=== PATIENT | female | born 1965 | race Caucasian/White ===

== ENCOUNTER 2021-01-05 07:58 | Inpatient (IN) ==
[2021-01-05] MEDS ORDERED: Lactated Ringers 1000 ml BAG 1,000 ML IV ONE (08:45)
[2021-01-05 08:53] LABS: ABS Lymphocytes 0.7 10^3/ul (1.0-4.8); ABS Monocytes 1.1 10^3/ul (0-0.8); ABS Neutrophils 7.7 10^3/ul (1.5-7.7); Eosinophil % 0.2 %; Hematocrit 46 % (35-47); Hemoglobin 16.4 g/dL (12.0-16.0); Lymphocyte % 7.2 %; Mean Corpuscular HGB Conc 36 g/dL (31-36); Mean Corpuscular Hemoglobin 34 pg (27-31); Mean Corpuscular Volume 96 fL (80-97); Mean Platelet Volume 7.6 fL (7.4-10.4); Platelet Count 317 10^3/uL (150-450); Red Blood Count 4.83 10^6 /uL (3.70-4.87); Red Cell Distribution Width 13 % (10-15); White Blood Count 9.5 10^3/uL (3.5-10.8)
[2021-01-05] MEDS ORDERED: HYDROmorphone 0.5 MG/0.5 ML SYRINGE IV ONE ×2 (09:05→10:02)
[2021-01-05 09:10] LABS: ALT 22 U/L (7-52); Alkaline Phosphatase 104 U/L (35-149); Blood Urea Nitrogen 27 mg/dL (6-24); Calcium 10.3 mg/dL (8.6-10.3); Chloride 68 mmol/L (101-111); Globulin 4.1 g/dL (2-4); Glucose 117 mg/dL (70-100); Sodium 126 mmol/L (135-145); Total Protein 8.1 g/dL (6.4-8.9)
[2021-01-05 09:26] LABS: Anion Gap 16 mmol/L (2-11); CO2 Carbon Dioxide 42 mmol/L (22-32)
[2021-01-05 09:30] LABS: Troponin I 0.04 ng/mL (<0.03)
[2021-01-05 09:48] LABS: Urine Appearance Cloudy; Urine Bilirubin Negative (Negative); Urine Blood 1+ (Negative); Urine Color Amber; Urine Glucose Negative (Negative); Urine Ketones 2+ (Negative); Urine Nitrite Negative (Negative); Urine Protein 3+(>=500 mg/dL) (Negative); Urine Urobilinogen Negative (Negative)
[2021-01-05 09:56] LABS: Urine Bacteria Absent (Absent); Urine Red Blood Cell 1+(3-5/hpf) (Absent); Urine Squamous Epithelial Cell Present (Absent); Urine White Blood Cell 1+(6-10/hpf) (Absent)
[2021-01-05 10:06] LABS: Potassium Redraw 2.3 mmol/L (3.5-5.0)
[2021-01-05 10:27] LABS: Magnesium 2.3 mg/dL (1.9-2.7)
[2021-01-05] MEDS: KCL 20 MEQ/100 ML IVPREMIX 20 MEQ/100 ML BAG IV SCH ×3 (11:05→15:44)
[2021-01-05] MEDS: Lactated Ringers 1000 ml BAG 1,000 ML IV SCH (11:05)
[2021-01-05] MEDS ORDERED: Lidocaine 4% GEL 10 GM TUBE TOPICAL PRN (11:37)
[2021-01-05] MEDS ORDERED: Prochlorperazine 5 mg/ml 2 ml VIAL (10 mg) IV PRN (11:45)
[2021-01-05 12:48] LABS: Rapid COVID-19 Molecular Undetected (Undetected)
[2021-01-05 13:13] LABS: Troponin I 0.03 ng/mL (<0.03)
[2021-01-05] MEDS: Nicotine PATCH 14 MG/24 HR PATCH TRANSDERM SCH (13:17)
[2021-01-05] MEDS: Magic MouthWash1-BEN/MAAL/LIDO 180 ML BTL SWISH SWAL SCH ×3 (13:18→21:04)
[2021-01-05] MEDS: Pantoprazole VIAL 40 MG VIAL IV SCH (15:43)
[2021-01-05] MEDS: HYDROmorphone 0.5 MG/0.5 ML SYRINGE IV SLOW PU PRN ×2 (17:00→21:01)
[2021-01-05] MEDS: Heparin 5000 UNITS/ML 1 mL VIAL SUBCUT SCH ×2 (17:03→21:01)
[2021-01-05 17:18] LABS: Calcium 9.4 mg/dL (8.6-10.3); Potassium 3.2 mmol/L (3.5-5.0)
[2021-01-05] MEDS: oxyCODONE 5 mg/5 ml ORAL.SOLN UDC PO PRN ×2 (17:49→23:13)
[2021-01-05 17:56] LABS: Troponin I 0.03 ng/mL (<0.03)
[2021-01-05] MEDS: KCL 10 MEQ/50 ML IVPREMIX 10 MEQ/50 ML BAG IV SCH ×4 (19:20→23:12)
[2021-01-06 00:05] LABS: Potassium 3.2 mmol/L (3.5-5.0)
[2021-01-06] MEDS: Lactated Ringers 1000 ml BAG 1,000 ML IV SCH ×4 (00:22→20:51)
[2021-01-06] MEDS: HYDROmorphone 0.5 MG/0.5 ML SYRINGE IV SLOW PU PRN ×5 (01:28→19:59)
[2021-01-06] MEDS: oxyCODONE 5 mg/5 ml ORAL.SOLN UDC PO PRN ×4 (03:19→17:10)
[2021-01-06] MEDS: Heparin 5000 UNITS/ML 1 mL VIAL SUBCUT SCH ×2 (05:51→14:39)
[2021-01-06 08:04] LABS: ABS Lymphocytes 0.8 10^3/ul (1.0-4.8); ABS Monocytes 0.9 10^3/ul (0-0.8); ABS Neutrophils 5.8 10^3/ul (1.5-7.7); Eosinophil % 0.5 %; Hematocrit 36 % (35-47); Hemoglobin 12.9 g/dL (12.0-16.0); Lymphocyte % 10.7 %; Mean Corpuscular HGB Conc 36 g/dL (31-36); Mean Corpuscular Hemoglobin 35 pg (27-31); Mean Corpuscular Volume 97 fL (80-97); Mean Platelet Volume 7.4 fL (7.4-10.4); Platelet Count 290 10^3/uL (150-450); Red Blood Count 3.69 10^6 /uL (3.70-4.87); Red Cell Distribution Width 12 % (10-15); White Blood Count 7.6 10^3/uL (3.5-10.8)
[2021-01-06 08:15] LABS: Potassium 3.3 mmol/L (3.5-5.0)
[2021-01-06] MEDS: Magic MouthWash1-BEN/MAAL/LIDO 180 ML BTL SWISH SWAL SCH ×4 (08:58→20:51)
[2021-01-06] MEDS: Nicotine PATCH 14 MG/24 HR PATCH TRANSDERM SCH (08:59)
[2021-01-06] MEDS: Pantoprazole VIAL 40 MG VIAL IV SCH (09:03)
[2021-01-06 10:28] LABS: INR 1.12 (0.86-1.15)
[2021-01-06] MEDS ORDERED: Orphenadrine Citrate INJ 30 mg/ml 2 ml VIAL (60 mg) IV PRN (14:05)
[2021-01-06] MEDS ORDERED: diPHENhydraMINE 25 mg TAB PO ONE (16:36)
[2021-01-07] MEDS: HYDROmorphone 0.5 MG/0.5 ML SYRINGE IV SLOW PU PRN ×3 (01:24→13:22)
[2021-01-07] MEDS: oxyCODONE 5 mg/5 ml ORAL.SOLN UDC PO PRN ×3 (03:53→20:34)
[2021-01-07] MEDS: Lactated Ringers 1000 ml BAG 1,000 ML IV SCH (04:21)
[2021-01-07 04:47] LABS: INR 1.11 (0.86-1.15)
[2021-01-07] MEDS: Magic MouthWash1-BEN/MAAL/LIDO 180 ML BTL SWISH SWAL SCH ×4 (07:26→20:32)
[2021-01-07] MEDS ORDERED: Clindamycin 600 MG/D5W BAG IV ONE (08:00)
[2021-01-07] MEDS ORDERED: Lidocaine 2% JELLY 6 ML TOPICAL ONE (08:08)
[2021-01-07] MEDS ORDERED: HYDROmorphone 0.5 MG/0.5 ML SYRINGE ONE (08:10)
[2021-01-07] MEDS ORDERED: fentaNYL 100 mcg/2 ml 50 MCG/ML VIAL ONE (08:17)
[2021-01-07] MEDS ORDERED: Midazolam 2 mg/2 ml VIAL 1 mg/ml 2 ml VIAL (2 mg) ONE (08:17)
[2021-01-07] MEDS ORDERED: Bupivacaine 0.25% SDV PF 10 ML VIAL INJ ONE (08:17)
[2021-01-07] MEDS: Pantoprazole VIAL 40 MG VIAL IV SCH (10:46)
[2021-01-07] MEDS: Nicotine PATCH 14 MG/24 HR PATCH TRANSDERM SCH (10:46)
[2021-01-07] MEDS ORDERED: Lorazepam PYXIS KEY PRN (11:58)
[2021-01-07] MEDS ORDERED: LORazepam 2 mg VIAL 1 ml IV PUSH PRN (11:58)
[2021-01-07] MEDS ORDERED: Lactated Ringers 1000 ml BAG 1,000 ML IV SCH (12:14)
[2021-01-07] MEDS: KCL 10 MEQ/50 ML IVPREMIX 10 MEQ/50 ML BAG IV SCH ×2 (13:13→16:31)
[2021-01-07] MEDS: Heparin 5000 UNITS/ML 1 mL VIAL SUBCUT SCH ×2 (13:13→20:34)
[2021-01-07] MEDS ORDERED: DiMENhydriNATE IV 50 mg/ml 1 ml VIAL IV PUSH PRN (13:14)
[2021-01-07] MEDS: HYDROmorphone 1 MG/1 ML SYRINGE IV SLOW PU PRN (17:25)
[2021-01-08] MEDS: HYDROmorphone 1 MG/1 ML SYRINGE IV SLOW PU PRN ×3 (01:22→15:21)
[2021-01-08] MEDS: oxyCODONE 5 mg/5 ml ORAL.SOLN UDC PO PRN (05:06)
[2021-01-08] MEDS: Heparin 5000 UNITS/ML 1 mL VIAL SUBCUT SCH (05:07)
[2021-01-08 08:28] LABS: Calcium 9.7 mg/dL (8.6-10.3); Magnesium 1.5 mg/dL (1.9-2.7); Potassium 3.1 mmol/L (3.5-5.0)
[2021-01-08] MEDS: Pantoprazole VIAL 40 MG VIAL IV SCH (09:02)
[2021-01-08] MEDS: Magic MouthWash1-BEN/MAAL/LIDO 180 ML BTL SWISH SWAL SCH ×2 (09:03→13:45)
[2021-01-08] MEDS: Nicotine PATCH 14 MG/24 HR PATCH TRANSDERM SCH (09:03)
[2021-01-08] MEDS ORDERED: Magnesium Sulfate IV 3 GM in NS 0.9% 100 ml BAG 100 ML IVPB ONE (09:32)
[2021-01-08] MEDS ORDERED: DiMENhydriNATE IV 50 mg/ml 1 ml VIAL IV PUSH PRN (09:33)
[2021-01-08] MEDS ORDERED: oxyCODONE 5 mg/5 ml ORAL.SOLN UDC G TUBE PRN (09:58)
[2021-01-08] MEDS ORDERED: NS 0.9% w/ 40 Meq KCL 1000 ML 1,000 ML IV SCH (10:00)
[2021-01-08] MEDS ORDERED: KCL 10 MEQ/50 ML IVPREMIX 10 MEQ/50 ML BAG IV SCH (10:00)
[2021-01-08 11:54] VITALS: BP 147/86
== END 2021-01-08 15:30 | disposition home or self-care (01) | DRG 243 ==
LOC: ED 07:58 → SUATTDRO 11:14 → EDHOLD 11:14 → MEDTELE 15:51
PROVIDERS: ADMIT Internal Medicine; ATTEND Internal Medicine

== ENCOUNTER 2021-07-20 17:24 | Inpatient (IN) ==
[2021-07-20] MEDS ORDERED: Lactated Ringers 1000 ml BAG 1,000 ML IV ONE (19:37)
[2021-07-20] MEDS ORDERED: LORazepam 2 mg VIAL 1 ml IV PUSH ONE ×2 (19:38→22:11)
[2021-07-20] MEDS ORDERED: Lorazepam PYXIS KEY PRN ×2 (19:38→22:11)
[2021-07-20] MEDS ORDERED: ACETAMINOPHEN 1 GM/100 ML IV SCH (19:45)
[2021-07-20 19:55] LABS: Hematocrit 28 % (35-47); Hemoglobin 9.8 g/dL (12.0-16.0); Mean Corpuscular HGB Conc 35 g/dL (31-36); Mean Corpuscular Hemoglobin 36 pg (27-31); Mean Corpuscular Volume 102 fL (80-97); Mean Platelet Volume 7.4 fL (7.4-10.4); Platelet Count 335 10^3/uL (150-450); Red Blood Count 2.75 10^6 /uL (3.70-4.87); Red Cell Distribution Width 16 % (10-15); White Blood Count 6.1 10^3/uL (3.5-10.8)
[2021-07-20 20:20] LABS: Activated Partial Thrombo Time 26.7 seconds (26.0-38.0); INR 1.04 (0.86-1.15)
[2021-07-20 20:51] LABS: Albumin 2.6 g/dL (3.2-5.2); Albumin/Globulin Ratio 1.2 (1-3); C Reactive Protein 54.37 mg/L (<8.01); Globulin 2.2 g/dL (2-4); Potassium 3.6 mmol/L (3.5-5.0); Total Bilirubin 0.4 mg/dL (0.2-1.0); Total Protein 4.8 g/dL (6.4-8.9); eGFR CKD-EPI 107.1 (>60)
[2021-07-20] MEDS ORDERED: Iohexol 350 (CONTRAST) 500 ML MDV IV ONE (20:56)
[2021-07-20] MEDS ORDERED: Azithromycin 500 mg/250 ml NS 500 MG/250 ML BAG IVPB ONE (21:32)
[2021-07-20] MEDS ORDERED: cefTRIAXone 1 gm/50 mL D5W 1 GM/50 ML BAG IV ONE (21:32)
[2021-07-20 21:45] LABS: Anisocytosis 1+; Basophilic Stippling 1+; Macrocytosis 1+; Polychromasia 1+
[2021-07-20 21:46] LABS: Toxic Granulation 1+
[2021-07-20 21:47] LABS: ABS Lymphocytes 0.2 10^3/ul (1.0-4.8); ABS Monocytes 1.7 10^3/ul (0-0.8); ABS Neutrophils 4.1 10^3/ul (1.5-7.7); Lymphocyte % 3.9 %; Nucleated Red Blood Cells % 0.3
[2021-07-20] MEDS ORDERED: Ondansetron 4 mg VIAL 2 MG/ML 2 ml VIAL IV PRN (22:11)
[2021-07-20 22:40] LABS: High Sensitivity Troponin 1 Hr 7 pg/mL (<15)
[2021-07-21] MEDS: fentaNYL PATCH 50 MCG/HR 1 PATCH TRANSDERM SCH (02:01)
[2021-07-21] MEDS: Sulfamethox/Trimethoprim DS TAB 800/160 mg PO SCH ×4 (02:04→20:42)
[2021-07-21] MEDS: Heparin 5000 UNITS/ML 1 mL VIAL SUBCUT SCH ×4 (02:04→20:42)
[2021-07-21 02:13] LABS: Calcium 7.8 mg/dL (8.6-10.3); Potassium 3.3 mmol/L (3.5-5.0); eGFR CKD-EPI 108.1 (>60)
[2021-07-21] MEDS: oxyCODONE 5 mg/5 ml ORAL.SOLN UDC PO PRN ×3 (02:21→20:41)
[2021-07-21 02:24] LABS: Osmolality Serum 264 mOsm/kg (275-295)
[2021-07-21] MEDS ORDERED: Potassium Chloride LIQUID 20 MEQ/15 ML LIQUID PO ONE (02:43)
[2021-07-21 03:43] LABS: Urine Appearance Clear; Urine Bilirubin Negative (Negative); Urine Blood Negative (Negative); Urine Color Straw; Urine Glucose Negative (Negative); Urine Ketones Negative (Negative); Urine Nitrite Negative (Negative); Urine Protein Negative (Negative); Urine Specific Gravity 1.013 (1.002-1.030); Urine Urobilinogen Negative (Negative)
[2021-07-21 04:00] LABS: Urine Creatinine Concentration 15.16 mg/dL
[2021-07-21 04:26] LABS: Urine Osmo 253 mOsm/kg (150-1150)
[2021-07-21 06:18] LABS: ABS Lymphocytes 0.2 10^3/ul (1.0-4.8); ABS Monocytes 0.2 10^3/ul (0-0.8); ABS Neutrophils 3.9 10^3/ul (1.5-7.7); Hematocrit 30 % (35-47); Hemoglobin 10.3 g/dL (12.0-16.0); Lymphocyte % 4.9 %; Mean Corpuscular HGB Conc 34 g/dL (31-36); Mean Corpuscular Hemoglobin 35 pg (27-31); Mean Corpuscular Volume 103 fL (80-97); Mean Platelet Volume 7.7 fL (7.4-10.4); Nucleated Red Blood Cells % 0.2; Platelet Count 357 10^3/uL (150-450); Red Blood Count 2.91 10^6 /uL (3.70-4.87); Red Cell Distribution Width 16 % (10-15); White Blood Count 4.4 10^3/uL (3.5-10.8)
[2021-07-21 06:42] LABS: ALT 7 U/L (7-52); Albumin 2.5 g/dL (3.2-5.2); Albumin/Globulin Ratio 1.2 (1-3); Alkaline Phosphatase 104 U/L (35-149); Blood Urea Nitrogen 6 mg/dL (6-24); C Reactive Protein 72.67 mg/L (<8.01); CO2 Carbon Dioxide 27 mmol/L (22-32); Calcium 7.4 mg/dL (8.6-10.3); Chloride 91 mmol/L (101-111); Globulin 2.1 g/dL (2-4); Glucose 110 mg/dL (70-100); Magnesium 1.5 mg/dL (1.9-2.7); Sodium 126 mmol/L (135-145); Total Protein 4.6 g/dL (6.4-8.9); eGFR CKD-EPI 113.3 (>60)
[2021-07-21 06:47] LABS: Anion Gap 8 mmol/L (2-11)
[2021-07-21] MEDS ORDERED: Magnesium Sulfate IV 3 GM in NS 0.9% 100 ml BAG 100 ML IVPB ONE (06:56)
[2021-07-21] MEDS ORDERED: Magnesium Sulfate 2 GM IV (Premix) IVPB ONE (07:00)
[2021-07-21] MEDS ORDERED: Magnesium Sulfate 1 GM IV 1 GM/100 ML BAG IV ONE (08:00)
[2021-07-21] MEDS: fentaNYL Patch Check Q Shift NOTE FOLLOW UP SCH ×2 (08:28→18:35)
[2021-07-21 09:18] LABS: Potassium Redraw 3.5 mmol/L (3.5-5.0)
[2021-07-21] MEDS ORDERED: methylPREDNISolone SOD SUCC 125 mg 2 ML VIAL IV ONE (10:00)
[2021-07-21] MEDS: Sucralfate 1 gm SUSP 1 GM/10 ML UDC PO SCH ×2 (11:01→20:45)
[2021-07-21] MEDS: methylPREDNISolone SOD SUCC 40 mg/ml 1 ml VIAL IV SCH (17:54)
[2021-07-21] MEDS ORDERED: Nicotine GUM 2MG FRUIT FLAVOR PO ONE (18:02)
[2021-07-21] MEDS: cefTRIAXone 1 gm/50 mL D5W 1 GM/50 ML BAG IV SCH (21:09)
[2021-07-21 22:57] LABS: Phosphorus 4.6 mg/dL (2.5-5.0)
[2021-07-22] MEDS: methylPREDNISolone SOD SUCC 40 mg/ml 1 ml VIAL IV SCH ×3 (01:52→19:16)
[2021-07-22] MEDS: oxyCODONE 5 mg/5 ml ORAL.SOLN UDC PO PRN ×3 (02:37→17:06)
[2021-07-22 04:36] LABS: ABS Lymphocytes 0.2 10^3/ul (1.0-4.8); ABS Monocytes 0.9 10^3/ul (0-0.8); ABS Neutrophils 6.7 10^3/ul (1.5-7.7); Hematocrit 26 % (35-47); Lymphocyte % 2.1 %; Mean Corpuscular HGB Conc 35 g/dL (31-36); Mean Corpuscular Hemoglobin 35 pg (27-31); Mean Corpuscular Volume 102 fL (80-97); Mean Platelet Volume 7.7 fL (7.4-10.4); Nucleated Red Blood Cells % 0.2; Platelet Count 331 10^3/uL (150-450); Red Blood Count 2.56 10^6 /uL (3.70-4.87); Red Cell Distribution Width 16 % (10-15); White Blood Count 7.7 10^3/uL (3.5-10.8)
[2021-07-22 04:54] LABS: Calcium 8.1 mg/dL (8.6-10.3); Magnesium 2.3 mg/dL (1.9-2.7); Phosphorus 5.3 mg/dL (2.5-5.0); Potassium 3.5 mmol/L (3.5-5.0); eGFR CKD-EPI 101.2 (>60)
[2021-07-22] MEDS ORDERED: Potassium Chloride LIQUID 20 MEQ/15 ML LIQUID PO ONE (05:27)
[2021-07-22] MEDS: Heparin 5000 UNITS/ML 1 mL VIAL SUBCUT SCH ×3 (05:56→22:54)
[2021-07-22] MEDS: fentaNYL Patch Check Q Shift NOTE FOLLOW UP SCH ×2 (06:58→19:12)
[2021-07-22] MEDS: Nicotine PATCH 21 MG/24 HR PATCH ONE ×2 (09:12→11:08)
[2021-07-22] MEDS: Nicotine PATCH 21 MG/24 HR PATCH TRANSDERM SCH (09:13)
[2021-07-22] MEDS: Sulfamethox/Trimethoprim DS TAB 800/160 mg PO SCH (09:13)
[2021-07-22] MEDS: Sucralfate 1 gm SUSP 1 GM/10 ML UDC PO SCH ×2 (11:37→22:54)
[2021-07-22] MEDS: Sulfamethox/Trimethoprim SUSP 800-160mg/20 ML UDC G TUBE SCH ×2 (13:03→22:44)
[2021-07-22] MEDS: oxyCODONE 5 mg/5 ml ORAL.SOLN UDC G TUBE PRN (21:17)
[2021-07-22] MEDS: cefTRIAXone 1 gm/50 mL D5W 1 GM/50 ML BAG IV SCH (22:44)
[2021-07-22] MEDS: guaiFENesin 100 mg/5 ml LIQ unit dose cup G TUBE SCH (22:55)
[2021-07-22] MEDS: Lansoprazole SUSP ORALSYR 3 MG/ML G TUBE SCH (23:15)
[2021-07-23] MEDS: guaiFENesin 100 mg/5 ml LIQ unit dose cup G TUBE SCH ×6 (02:04→22:22)
[2021-07-23] MEDS: methylPREDNISolone SOD SUCC 40 mg/ml 1 ml VIAL IV SCH ×3 (02:04→17:38)
[2021-07-23] MEDS: oxyCODONE 5 mg/5 ml ORAL.SOLN UDC G TUBE PRN ×5 (02:04→22:21)
[2021-07-23 03:17] LABS: ABS Lymphocytes 0.2 10^3/ul (1.0-4.8); ABS Monocytes 0.9 10^3/ul (0-0.8); ABS Neutrophils 5.6 10^3/ul (1.5-7.7); Hematocrit 26 % (35-47); Hemoglobin 8.8 g/dL (12.0-16.0); Lymphocyte % 2.4 %; Mean Corpuscular HGB Conc 33 g/dL (31-36); Mean Corpuscular Hemoglobin 34 pg (27-31); Mean Corpuscular Volume 103 fL (80-97); Mean Platelet Volume 7.5 fL (7.4-10.4); Platelet Count 309 10^3/uL (150-450); Red Blood Count 2.55 10^6 /uL (3.70-4.87); Red Cell Distribution Width 16 % (10-15); White Blood Count 6.7 10^3/uL (3.5-10.8)
[2021-07-23 03:47] LABS: Albumin 2.4 g/dL (3.2-5.2); Albumin/Globulin Ratio 1.1 (1-3); Calcium 7.9 mg/dL (8.6-10.3); Globulin 2.1 g/dL (2-4); Potassium 4.4 mmol/L (3.5-5.0); Total Bilirubin 0.2 mg/dL (0.2-1.0); Total Protein 4.5 g/dL (6.4-8.9); eGFR CKD-EPI 100.9 (>60)
[2021-07-23] MEDS: Heparin 5000 UNITS/ML 1 mL VIAL SUBCUT SCH ×3 (06:34→22:16)
[2021-07-23] MEDS: fentaNYL Patch Check Q Shift NOTE FOLLOW UP SCH ×2 (07:26→18:51)
[2021-07-23] MEDS: Nicotine PATCH 21 MG/24 HR PATCH TRANSDERM SCH (08:04)
[2021-07-23] MEDS: Sulfamethox/Trimethoprim SUSP 800-160mg/20 ML UDC G TUBE SCH ×3 (08:12→20:09)
[2021-07-23] MEDS: Sucralfate 1 gm SUSP 1 GM/10 ML UDC PO SCH ×2 (08:12→20:09)
[2021-07-23] MEDS: Lansoprazole SUSP ORALSYR 3 MG/ML G TUBE SCH ×2 (08:13→20:14)
[2021-07-23 15:05] LABS: Body Fluid Appearance Cloudy; Body Fluid Color Yellow; Body Fluid Source Pleural Fluid
[2021-07-23 16:42] LABS: Body Fluid WBC 159 /mcL
[2021-07-23 17:53] LABS: Body Fluid Mono 16 %; Body Fluid Other Cells 176; Body Fluid Total Cells Counted 200
[2021-07-23] MEDS: cefTRIAXone 1 gm/50 mL D5W 1 GM/50 ML BAG IV SCH (20:03)
[2021-07-23] MEDS: Diphenoxylat/Atrop 2.5-0.025mg TAB FEED TUBE PRN (22:20)
[2021-07-23] MEDS: fentaNYL PATCH 50 MCG/HR 1 PATCH TRANSDERM SCH (22:53)
[2021-07-24] MEDS: methylPREDNISolone SOD SUCC 40 mg/ml 1 ml VIAL IV SCH ×3 (02:38→17:05)
[2021-07-24] MEDS: guaiFENesin 100 mg/5 ml LIQ unit dose cup G TUBE SCH ×6 (02:41→22:19)
[2021-07-24] MEDS: oxyCODONE 5 mg/5 ml ORAL.SOLN UDC G TUBE PRN ×5 (02:45→22:39)
[2021-07-24] MEDS: Heparin 5000 UNITS/ML 1 mL VIAL SUBCUT SCH ×3 (05:19→22:51)
[2021-07-24 06:20] LABS: ABS Lymphocytes 0.1 10^3/ul (1.0-4.8); ABS Monocytes 0.7 10^3/ul (0-0.8); ABS Neutrophils 8.2 10^3/ul (1.5-7.7); Hematocrit 27 % (35-47); Lymphocyte % 1.5 %; Mean Corpuscular HGB Conc 33 g/dL (31-36); Mean Corpuscular Hemoglobin 34 pg (27-31); Mean Corpuscular Volume 102 fL (80-97); Mean Platelet Volume 7.5 fL (7.4-10.4); Platelet Count 301 10^3/uL (150-450); Red Blood Count 2.66 10^6 /uL (3.70-4.87); Red Cell Distribution Width 16 % (10-15)
[2021-07-24 06:58] LABS: Albumin 2.4 g/dL (3.2-5.2); Albumin/Globulin Ratio 1.1 (1-3); Globulin 2.1 g/dL (2-4); Magnesium 1.8 mg/dL (1.9-2.7); Phosphorus 3.2 mg/dL (2.5-5.0); Potassium 4.3 mmol/L (3.5-5.0); Total Bilirubin 0.2 mg/dL (0.2-1.0); Total Protein 4.5 g/dL (6.4-8.9); eGFR CKD-EPI 100.2 (>60)
[2021-07-24] MEDS: fentaNYL Patch Check Q Shift NOTE FOLLOW UP SCH ×2 (06:59→19:08)
[2021-07-24] MEDS: Sucralfate 1 gm SUSP 1 GM/10 ML UDC PO SCH ×2 (08:24→22:20)
[2021-07-24] MEDS: Sulfamethox/Trimethoprim SUSP 800-160mg/20 ML UDC G TUBE SCH ×3 (08:24→22:19)
[2021-07-24] MEDS: Nicotine PATCH 21 MG/24 HR PATCH TRANSDERM SCH (08:25)
[2021-07-24] MEDS: Lansoprazole SUSP ORALSYR 3 MG/ML G TUBE SCH ×2 (08:40→22:41)
[2021-07-24 13:39] LABS: Lactate Dehydrogenase, BF 196 U/L
[2021-07-24 15:47] LABS: Fluid Type, Protein, Total PLEURAL FLUID; Total Protein, BF 2.2 g/dL
[2021-07-24] MEDS: cefTRIAXone 1 gm/50 mL D5W 1 GM/50 ML BAG IV SCH (20:03)
[2021-07-24] MEDS: Diphenoxylat/Atrop 2.5-0.025mg TAB FEED TUBE PRN (22:59)
[2021-07-25] MEDS: methylPREDNISolone SOD SUCC 40 mg/ml 1 ml VIAL IV SCH ×2 (01:52→11:31)
[2021-07-25] MEDS: guaiFENesin 100 mg/5 ml LIQ unit dose cup G TUBE SCH ×4 (01:54→13:36)
[2021-07-25] MEDS: oxyCODONE 5 mg/5 ml ORAL.SOLN UDC G TUBE PRN ×2 (06:19→13:36)
[2021-07-25] MEDS: Heparin 5000 UNITS/ML 1 mL VIAL SUBCUT SCH ×2 (06:22→13:44)
[2021-07-25] MEDS: fentaNYL Patch Check Q Shift NOTE FOLLOW UP SCH (07:15)
[2021-07-25] MEDS: Nicotine PATCH 21 MG/24 HR PATCH TRANSDERM SCH (09:28)
[2021-07-25] MEDS: Lansoprazole SUSP ORALSYR 3 MG/ML G TUBE SCH (09:40)
[2021-07-25] MEDS: Sucralfate 1 gm SUSP 1 GM/10 ML UDC PO SCH (09:40)
[2021-07-25] MEDS: Sulfamethox/Trimethoprim SUSP 800-160mg/20 ML UDC G TUBE SCH ×2 (09:41→13:49)
[2021-07-25 15:29] VITALS: BP 128/85
== END 2021-07-25 16:35 | disposition home or self-care (01) | DRG 424 ==
LOC: ED 17:24 → EDHOLD 22:11 → SUATTDRO 22:11 → ICU 07-21 11:48 → MED 07-22 14:52
PROVIDERS: ADMIT Internal Medicine Critical Care Medicine; ATTEND Internal Medicine

== ENCOUNTER 2021-12-04 07:26 | Inpatient (IN) ==
[2021-12-04] MEDS ORDERED: Lactated Ringers 1000 ml BAG 1,000 ML IV ONE ×2 (07:46→09:03)
[2021-12-04] MEDS ORDERED: oxyCODONE 5 mg/5 ml ORAL.SOLN UDC G TUBE ONE ×2 (07:55→08:30)
[2021-12-04] MEDS ORDERED: Lorazepam PYXIS KEY PRN (08:13)
[2021-12-04] MEDS ORDERED: LORazepam 2 mg VIAL 1 ml IV PUSH ONE (08:13)
[2021-12-04] MEDS ORDERED: oxyCODONE *Concentrate* ORALSYR 20 MG/ML G TUBE ONE (08:14)
[2021-12-04] MEDS: Albuterol HFA INHALER 8 gm MDI INH ONE ×2 (08:23→08:27)
[2021-12-04 08:28] LABS: Hematocrit 24 % (35-47); Hemoglobin 7.5 g/dL (12.0-16.0); Mean Corpuscular HGB Conc 32 g/dL (31-36); Mean Corpuscular Hemoglobin 35 pg (27-31); Mean Corpuscular Volume 111 fL (80-97); Mean Platelet Volume 9.3 fL (7.4-10.4); Platelet Count 174 10^3/uL (150-450); Red Blood Count 2.14 10^6 /uL (3.70-4.87); Red Cell Distribution Width 19 % (10-15); White Blood Count 10.7 10^3/uL (3.5-10.8)
[2021-12-04 08:31] LABS: Activated Partial Thrombo Time 30.9 seconds (26.0-38.0); INR 0.87 (0.89-1.11)
[2021-12-04] MEDS ORDERED: Cefepime 1 GM in Dextrose 1 GM/50 ML BAG IV ONE (08:46)
[2021-12-04 08:51] LABS: C Reactive Protein 52.14 mg/L (<8.01)
[2021-12-04] MEDS ORDERED: Vancomycin 1,250 MG in NS 0.9% 250 ml 250 ML IVPB ONE (09:00)
[2021-12-04 09:19] LABS: ABS Lymphocytes 0.4 10^3/ul (1.0-4.8); ABS Monocytes 0.6 10^3/ul (0-0.8); ABS Neutrophils 9.7 10^3/ul (1.5-7.7); Anisocytosis 1+; Eosinophil % 0.1 %; Lymphocyte % 3.3 %; Macrocytosis 2+
[2021-12-04 10:26] LABS: Albumin 1.8 g/dL (3.2-5.2); Potassium 4.5 mmol/L (3.5-5.0); Total Bilirubin 0.9 mg/dL (0.2-1.0)
[2021-12-04 10:32] LABS: Albumin/Globulin Ratio 0.8 (1-3); Globulin 2.2 g/dL (2-4); eGFR CKD-EPI 12.2 (>60)
[2021-12-04 10:35] LABS: Calcium 6.4 mg/dL (8.6-10.3)
[2021-12-04 11:11] LABS: PCO2 Arterial 39 mmHg (35-45); PO2 Arterial 90 mmHg (80-100)
[2021-12-04 11:26] LABS: Urine Appearance Clear; Urine Bilirubin Negative (Negative); Urine Blood Negative (Negative); Urine Color Yellow; Urine Glucose Negative (Negative); Urine Ketones Negative (Negative); Urine Nitrite Negative (Negative); Urine Protein 1+(30 mg/dL) (Negative); Urine Specific Gravity 1.018 (1.002-1.030); Urine Urobilinogen Negative (Negative)
[2021-12-04 11:31] LABS: Urine Bacteria Absent (Absent); Urine Red Blood Cell 1+(3-5/hpf) (Absent); Urine Squamous Epithelial Cell Present (Absent); Urine White Blood Cell Trace(0-5/hpf) (Absent)
[2021-12-04] MEDS ORDERED: Ondansetron 4 mg VIAL 2 MG/ML 2 ml VIAL IV PRN (11:40)
[2021-12-04] MEDS ORDERED: Polyethylene Glycol 3350 17 GM PACKET PO PRN (11:46)
[2021-12-04] MEDS ORDERED: Magnesium Hydroxide LIQ 30 ML UDC PO PRN (11:46)
[2021-12-04] MEDS ORDERED: Sucralfate 1 gm SUSP 1 GM/10 ML UDC PO PRN (11:46)
[2021-12-04] MEDS ORDERED: Docusate LIQ 100 MG/10 ML UDC PO PRN (11:46)
[2021-12-04] MEDS ORDERED: fentaNYL PATCH 25 MCG/HR 1 PATCH TRANSDERM SCH (12:00)
[2021-12-04] MEDS ORDERED: Albumin Human 25% 25 GM/100 ML BTL IV ONE (12:06)
[2021-12-04 12:31] LABS: Anion Gap 16 mmol/L (2-11); Blood Urea Nitrogen 77 mg/dL (6-24); CO2 Carbon Dioxide 19 mmol/L (22-32); Chloride 87 mmol/L (101-111); Glucose 101 mg/dL (70-100); Potassium 4.4 mmol/L (3.5-5.0); Sodium 122 mmol/L (135-145); eGFR CKD-EPI 13.2 (>60)
[2021-12-04 12:44] LABS: Calcium 6.2 mg/dL (8.6-10.3)
[2021-12-04] MEDS ORDERED: Bumetanide IV 0.25 MG/ML 4 ml VIAL (1 mg) SLOW PUSH ONE (13:12)
[2021-12-04] MEDS ORDERED: Albumin Human 25% 12.5 GM/50 ML BTL IV ONE (13:12)
[2021-12-04] MEDS: Diphenoxylat/Atrop 2.5-0.025mg TAB PO SCH ×3 (13:59→19:56)
[2021-12-04] MEDS: Azithromycin IV 500 MG in NS 0.9% 250 ml 250 ML IVPB SCH (14:45)
[2021-12-04 15:01] LABS: % Iron Saturation 77 % (15-55); Iron 81 ug/dL (50-212); Total Iron Binding Capacity 105 mcg/dL (250-450); Transferrin < 75 mg/dL (203-362); Unsaturated Iron Binding 24 ug/dL
[2021-12-04 15:07] LABS: TSH Ultra Thyroid Stim Horm 3.25 mcIU/mL (0.34-5.60)
[2021-12-04 15:13] LABS: Ferritin 1149.5 ng/mL (11-307)
[2021-12-04 15:16] LABS: Vitamin B12 > 1450 pg/mL (180-914)
[2021-12-04 16:10] LABS: GGTP 2257 U/L (9-64.0)
[2021-12-04 16:30] LABS: Hematocrit 18 % (35-47); Hemoglobin 5.7 g/dL (12.0-16.0)
[2021-12-04 16:33] LABS: Potassium 4.4 mmol/L (3.5-5.0); eGFR CKD-EPI 13.2 (>60)
[2021-12-04 16:37] LABS: Calcium 6.3 mg/dL (8.6-10.3)
[2021-12-04 17:23] LABS: Hematocrit 18 % (35-47)
[2021-12-04] MEDS: Albumin Human 25% 25 GM/100 ML BTL IV SCH (19:51)
[2021-12-04] MEDS: Bumetanide IV 0.25 MG/ML 4 ml VIAL (1 mg) SLOW PUSH SCH (19:51)
[2021-12-04] MEDS ORDERED: Albumin Human 25% 25 GM/100 ML BTL IV SCH (20:00)
[2021-12-04] MEDS: fentaNYL Patch Check Q Shift NOTE FOLLOW UP SCH (20:04)
[2021-12-04] MEDS: Lansoprazole SUSP ORALSYR 3 MG/ML PO SCH (21:23)
[2021-12-04] MEDS: cefTRIAXone 1 gm/50 mL D5W 1 GM/50 ML BAG IV SCH (21:46)
[2021-12-05] MEDS: Albumin Human 25% 25 GM/100 ML BTL IV SCH ×3 (00:48→14:04)
[2021-12-05] MEDS: Bumetanide IV 0.25 MG/ML 4 ml VIAL (1 mg) SLOW PUSH SCH ×4 (00:51→19:43)
[2021-12-05 01:05] LABS: ABS Lymphocytes 0.2 10^3/ul (1.0-4.8); ABS Monocytes 0.4 10^3/ul (0-0.8); ABS Neutrophils 8.9 10^3/ul (1.5-7.7); Eosinophil % 0.1 %; Hematocrit 22 % (35-47); Hemoglobin 7.4 g/dL (12.0-16.0); Lymphocyte % 2.1 %; Mean Corpuscular HGB Conc 33 g/dL (31-36); Mean Corpuscular Hemoglobin 34 pg (27-31); Mean Corpuscular Volume 102 fL (80-97); Mean Platelet Volume 9.6 fL (7.4-10.4); Platelet Count 115 10^3/uL (150-450); Red Blood Count 2.21 10^6 /uL (3.70-4.87); Red Cell Distribution Width 24 % (10-15); White Blood Count 9.5 10^3/uL (3.5-10.8)
[2021-12-05] MEDS: oxyCODONE 5 mg/5 ml ORAL.SOLN UDC PO PRN ×2 (03:44→09:41)
[2021-12-05 05:49] LABS: Calcium 6.8 mg/dL (8.6-10.3); Potassium 4.3 mmol/L (3.5-5.0); eGFR CKD-EPI 12.2 (>60)
[2021-12-05] MEDS: fentaNYL Patch Check Q Shift NOTE FOLLOW UP SCH ×2 (07:05→18:56)
[2021-12-05 08:16] LABS: Phosphorus 7.5 mg/dL (2.5-5.0)
[2021-12-05] MEDS ORDERED: Bumetanide IV 0.25 MG/ML 4 ml VIAL (1 mg) SLOW PUSH SCH (09:00)
[2021-12-05 09:27] LABS: Albumin 3.3 g/dL (3.2-5.2); Albumin/Globulin Ratio 2.2 (1-3); Globulin 1.5 g/dL (2-4); Indirect Bilirubin 0.6 mg/dL (0.3-1.0); Total Bilirubin 1.6 mg/dL (0.2-1.0); Total Protein 4.8 g/dL (6.4-8.9)
[2021-12-05] MEDS: Lansoprazole SUSP ORALSYR 3 MG/ML PO SCH (09:42)
[2021-12-05] MEDS: Diphenoxylat/Atrop 2.5-0.025mg TAB PO SCH ×2 (09:42→12:33)
[2021-12-05] MEDS ORDERED: Atropine 1% (ORAL/SL) 15 ML BTL SL PRN (12:05)
[2021-12-05] MEDS ORDERED: HYDROmorphone 0.5 MG/0.5 ML SYRINGE IV SLOW PU PRN (12:09)
[2021-12-05] MEDS: fentaNYL PATCH 50 MCG/HR 1 PATCH TRANSDERM SCH (16:15)
[2021-12-05] MEDS: Scopolamine 1 mg/72hr PATCH TRANSDERM SCH (16:22)
[2021-12-05] MEDS: HYDROmorphone 0.5 MG/0.5 ML SYRINGE IV SLOW PU PRN ×2 (19:09→21:18)
[2021-12-05] MEDS: Azithromycin IV 500 MG in NS 0.9% 250 ml 250 ML IVPB SCH (19:43)
[2021-12-05] MEDS: LORazepam 2 mg VIAL 1 ml IV PUSH PRN (20:36)
[2021-12-05] MEDS: cefTRIAXone 1 gm/50 mL D5W 1 GM/50 ML BAG IV SCH (21:17)
[2021-12-06] MEDS: HYDROmorphone 0.5 MG/0.5 ML SYRINGE IV SLOW PU PRN ×8 (00:33→21:58)
[2021-12-06] MEDS: Bumetanide IV 0.25 MG/ML 4 ml VIAL (1 mg) SLOW PUSH SCH ×3 (03:24→19:23)
[2021-12-06] MEDS: LORazepam 2 mg VIAL 1 ml IV PUSH PRN ×2 (04:06→22:50)
[2021-12-06] MEDS: fentaNYL Patch Check Q Shift NOTE FOLLOW UP SCH ×2 (07:34→19:29)
[2021-12-06] MEDS ORDERED: cefTRIAXone 1 gm/50 mL D5W 1 GM/50 ML BAG IV SCH (16:00)
[2021-12-07] MEDS: Bumetanide IV 0.25 MG/ML 4 ml VIAL (1 mg) SLOW PUSH SCH ×4 (03:22→20:34)
[2021-12-07] MEDS: HYDROmorphone 0.5 MG/0.5 ML SYRINGE IV SLOW PU PRN ×6 (03:23→15:55)
[2021-12-07] MEDS: fentaNYL Patch Check Q Shift NOTE FOLLOW UP SCH ×2 (07:08→19:17)
[2021-12-07] MEDS: LORazepam 2 mg VIAL 1 ml IV PUSH PRN ×2 (14:27→16:35)
[2021-12-07] MEDS ORDERED: HYDROmorphone 0.5 MG/0.5 ML SYRINGE IV SLOW PU PRN (15:57)
[2021-12-07] MEDS ORDERED: Glycopyrrolate IV 0.2 MG/ML 20 ML VIAL IV SLOW PU SCH (16:00)
[2021-12-07] MEDS ORDERED: Lorazepam PYXIS KEY PRN (16:22)
[2021-12-07] MEDS: Glycopyrrolate IV 0.2 MG/ML 1 ML VIAL IV SLOW PU SCH ×2 (16:36→22:28)
[2021-12-07] MEDS: HYDROmorphone 1 MG/1 ML SYRINGE IV SLOW PU SCH ×2 (17:59→21:18)
[2021-12-07] MEDS: LORazepam 2 mg VIAL 1 ml IV PUSH SCH ×2 (19:52→23:45)
[2021-12-08] MEDS: HYDROmorphone 1 MG/1 ML SYRINGE IV SLOW PU SCH ×6 (01:18→20:50)
[2021-12-08] MEDS: LORazepam 2 mg VIAL 1 ml IV PUSH SCH ×5 (03:33→20:45)
[2021-12-08] MEDS: Glycopyrrolate IV 0.2 MG/ML 1 ML VIAL IV SLOW PU SCH ×4 (05:15→20:53)
[2021-12-08] MEDS: Bumetanide IV 0.25 MG/ML 4 ml VIAL (1 mg) SLOW PUSH SCH ×3 (05:15→20:55)
[2021-12-08] MEDS: fentaNYL Patch Check Q Shift NOTE FOLLOW UP SCH ×2 (07:06→21:01)
[2021-12-08] MEDS: fentaNYL PATCH 50 MCG/HR 1 PATCH TRANSDERM SCH (16:20)
[2021-12-08] MEDS: Scopolamine 1 mg/72hr PATCH TRANSDERM SCH (17:01)
[2021-12-08 18:09] VITALS: BP 88/40
[2021-12-09] MEDS: LORazepam 2 mg VIAL 1 ml IV PUSH SCH ×3 (00:41→06:40)
[2021-12-09] MEDS: HYDROmorphone 1 MG/1 ML SYRINGE IV SLOW PU SCH ×2 (00:42→05:05)
[2021-12-09] MEDS: Glycopyrrolate IV 0.2 MG/ML 1 ML VIAL IV SLOW PU SCH (04:07)
[2021-12-09] MEDS: Bumetanide IV 0.25 MG/ML 4 ml VIAL (1 mg) SLOW PUSH SCH (05:04)
[2021-12-09] MEDS: fentaNYL Patch Check Q Shift NOTE FOLLOW UP SCH (07:24)
== END 2021-12-09 07:45 | disposition expired | DRG 469 ==
LOC: ED 07:26 → SUATTDRO 11:40 → EDHOLD 11:40 → MEDTELE 19:27
PROVIDERS: ADMIT Internal Medicine; ATTEND Internal Medicine